=== PATIENT | female | born 1970 | race Caucasian/White ===

== ENCOUNTER 2018-06-22 00:46 | Emergency (ER) | payer SELFPAY ==
[~2018-06-22] VITALS: Ht 152.4 cm; Wt 61.4 kg
[2018-06-22 00:52] VITALS: Ht 152.4 cm; Wt 61.4 kg
[2018-06-22] MEDS ORDERED: LISINOPRIL10 MG (00:53)
[2018-06-22] MEDS ORDERED: ZOLOFT100 MG PO (00:53)
[2018-06-22] MEDS ORDERED: SEROQUEL300 MG PO (00:53)
[2018-06-22] MEDS ORDERED: PHENERGAN25 M1 PO (00:54)
[2018-06-22] MEDS ORDERED: BUTALB-APAP-CA1 EACH PO (00:54)
[2018-06-22 01:20] VITALS: BP 149/96
== END 2018-06-22 01:15 | disposition home or self-care (01) ==
LOC: D.ER 00:46
DX: G43.919 Migraine, unspecified, intractable, without status migrainosus (principal)

== ENCOUNTER 2018-06-24 09:50 | Emergency (ER) | payer MEDICAID ==
[~2018-06-24] VITALS: Ht 152.4 cm; Wt 61.2 kg
[~2018-06-24 09:50] MED LIST: BUTALB-APAP-CA1 EACH PO; LISINOPRIL10 MG; PHENERGAN25 M1 PO; SEROQUEL300 MG PO; ZOLOFT100 MG PO
[2018-06-24 10:04] VITALS: BP 143/100; Ht 152.4 cm; Wt 61.2 kg
== END 2018-06-24 13:22 | disposition left against medical advice (07) ==
LOC: D.ER 09:50
DX: G43.919 Migraine, unspecified, intractable, without status migrainosus (principal)